=== PATIENT | male | born 1950 | race Caucasian/White ===

== ENCOUNTER 2018-03-22 14:34 | Inpatient (IN) | payer OTHER ==
[~2018-03-22] VITALS: Ht 165.1 cm; Wt 114.9 kg
[~2018-03-22 14:34] MED LIST: LAC PO; LEV500 PO; LEVOTHYROXINE0.05 M2 PO; MEDDP PO; TRAZODONE HYDR100 MG PO
[2018-03-22 14:41] VITALS: Ht 165.1 cm; Wt 114.9 kg
[2018-03-22 17:01] LABS: BASOPHIL % 0.4 % (0-2); PLATELET COUNT 186 x10^3mcL (130-400); RED CELL DISTRIBUTION WIDTH 13.5 % (11.5-14.5)
[2018-03-22 17:10] LABS: CALCIUM 8.8 mg/dL (8.5-10.1); CARBON DIOXIDE 29.5 mmol/L (21-32); CREATININE SERUM 1.7 mg/dL (0.7-1.3); POTASSIUM SERUM 3.7 mmol/L (3.5-5.1)
[2018-03-22 17:21] LABS: ALBUMIN 3.6 g/dL (3.4-5.0); BILIRUBIN TOTAL 0.72 mg/dL (0.20-1.00); TOTAL PROTEIN, SERUM 6.8 g/dL (6.4-8.2)
[2018-03-22 17:24] LABS: UA SPECIFIC GRAVITY >=1.030 (1.005-1.035); microscopic required? YES; urine erythrocyte 1+ (NEGATIVE)
[2018-03-22 17:38] LABS: CK-MB 1.2 ng/mL (0-3.6)
[2018-03-22 19:22] LABS: MAGNESIUM 2.1 mg/dL (1.8-2.4); PHOSPHOROUS 2.8 mg/dL (2.5-4.9)
[2018-03-22 19:30] LABS: T3 TOTAL 1.2 ng/mL
[2018-03-22 19:31] LABS: FREE T4 1.11 ng/dL (0.76-1.46); FREE THYROXINE INDEX 3.2 ug/dL (1.4-4.5); T4(THYROXINE) 9.7 ug/dL (4.7-13.3)
[2018-03-22 19:53] VITALS: BP 135/74
[2018-03-22 20:58] LABS: AMPHETAMINE QUAL UR NONE DETECTED (NEG <=1000)
[2018-03-23 05:57] VITALS: BP 127/62
[2018-03-23 06:09] LABS: BASOPHIL % 0.4 % (0-2); PLATELET COUNT 175 x10^3mcL (130-400); RED CELL DISTRIBUTION WIDTH 14.1 % (11.5-14.5)
[2018-03-23 06:40] LABS: CALCIUM 8.3 mg/dL (8.5-10.1); CARBON DIOXIDE 26.5 mmol/L (21-32); CREATININE SERUM 1.8 mg/dL (0.7-1.3); MAGNESIUM 1.9 mg/dL (1.8-2.4); PHOSPHOROUS 2.4 mg/dL (2.5-4.9); POTASSIUM SERUM 4.2 mmol/L (3.5-5.1)
[2018-03-23 09:28] VITALS: BP 137/64
[2018-03-23 13:30] VITALS: BP 114/75; BP 81/43
[2018-03-23 18:33] VITALS: BP 116/65
[2018-03-23 21:15] VITALS: BP 128/68
[2018-03-24 05:52] VITALS: BP 135/75
[2018-03-24 06:36] LABS: BASOPHIL % 0.2 % (0-2); PLATELET COUNT 151 x10^3mcL (130-400); RED CELL DISTRIBUTION WIDTH 13.9 % (11.5-14.5)
[2018-03-24 06:45] LABS: CALCIUM 8.1 mg/dL (8.5-10.1); CARBON DIOXIDE 27.5 mmol/L (21-32); CREATININE SERUM 1.9 mg/dL (0.7-1.3); PHOSPHOROUS 3.9 mg/dL (2.5-4.9); POTASSIUM SERUM 4.6 mmol/L (3.5-5.1)
[2018-03-24] MEDS ORDERED: TOR10 PO (08:40)
[2018-03-24] MEDS ORDERED: BACTRIM DS1 TAB PO (08:41)
[2018-03-24] MEDS ORDERED: LAC PO (08:42)
[2018-03-24] MEDS ORDERED: FLO4 PO (08:45)
[2018-03-24] MEDS ORDERED: ASPIR 8181 MG PO (08:47)
[2018-03-24] MEDS ORDERED: LIPI10 PO (08:47)
[2018-03-24 10:08] VITALS: BP 140/81
[2018-03-24 13:20] VITALS: BP 140/81
== END 2018-03-24 14:25 | disposition home or self-care (01) | DRG 693 ==
LOC: ED 14:34 → DU 18:38 → MU 03-23 19:49
PROVIDERS: Emergency Medicine; Family Medicine
DX: N20.2 Calculus of kidney with calculus of ureter (principal); N17.0 Acute kidney failure with tubular necrosis; Z68.41 Body mass index [BMI] 40.0-44.9, adult; E03.9 Hypothyroidism, unspecified; E78.5 Hyperlipidemia, unspecified; K57.90 Diverticulosis of intestine, part unspecified, without perforation or abscess without bleeding; E66.01 Morbid (severe) obesity due to excess calories; F12.90 Cannabis use, unspecified, uncomplicated; E83.39 Other disorders of phosphorus metabolism; Z90.49 Acquired absence of other specified parts of digestive tract
CPT/HCPCS: 83880; 84439; J0696; J1885; J7030; Q0092

== ENCOUNTER 2020-11-14 12:44 | Emergency (ER) | payer OTHER ==
[~2020-11-14] VITALS: Ht 165.1 cm; Wt 106.6 kg
[~2020-11-14 12:44] MED LIST changes: +ASPIR 8181 MG PO; +BACTRIM DS1 TAB PO; +FLO4 PO; +LIPI10 PO; +TOR10 PO
[2020-11-14 13:09] VITALS: Ht 165.1 cm; Wt 106.6 kg
[2020-11-14 17:35] VITALS: BP 148/80
== END 2020-11-14 17:35 | disposition home or self-care (01) ==
LOC: ED 12:44
DX: M54.41 Lumbago with sciatica, right side (principal); M48.061 Spinal stenosis, lumbar region without neurogenic claudication; M47.816 Spondylosis without myelopathy or radiculopathy, lumbar region; E03.9 Hypothyroidism, unspecified
CPT/HCPCS: J1885